=== PATIENT | female | born 1985 | race Hispanic/Latino ===

== ENCOUNTER 2017-04-04 17:26 | Emergency (ER) | payer OTHER ==
[2017-04-04 18:20] VITALS: BMI 30.1
[2017-04-04 19:04] LABS: BASO % 0.1 % (0.0-2.0); EOS # 0.1 K/uL (0.0-0.7); EOS % 0.9 % (0.0-4.0); HEMOGLOBIN 10.6 g/dL (12.0-16.0); LYMPH # 3.2 K/uL (1.0-4.3); LYMPH % 24.6 % (20.0-40.0); MEAN CELL VOLUME 89.8 fl (81.0-99.0); MEAN CORPUSCULAR HEMOGLOBIN 29.1 pg (27.0-31.0); MEAN CORPUSCULAR HGB CONC 32.5 g/dL (33.0-37.0); MEAN PLATELET VOLUME 9.2 fl (7.2-11.7); MONO # 1.3 K/uL (0.0-0.8); MONO % 10.1 % (0.0-10.0); NEUT # 8.4 K/uL (1.8-7.0); NEUT % 64.3 % (50.0-75.0); RBC 3.64 Mil/uL (3.80-5.20); RED CELL DISTRIBUTION WIDTH 14.7 % (11.5-14.5); WHITE BLOOD COUNT 13.2 K/uL (4.8-10.8)
[2017-04-04 19:19] LABS: ALB/GLOB RATIO 1.1 (1.0-2.1); ALBUMIN 3.5 g/dL (3.5-5.0); ALT/SGPT 39 U/L (9-52); AMYLASE 74 U/L (30-110); AST/SGOT 32 U/L (14-36); BILIRUBIN,DIRECT 0.2 mg/ml (0.0-0.4); BLOOD UREA NITROGEN 6 mg/dl (7-17); CALCIUM 9.7 mg/dL (8.4-10.2); GFR AFRICAN-AMERICAN > 60; GFR NON-AFRICAN AMERICAN > 60; LIPASE 194 U/L (23-300); URIC ACID 4.4 mg/Dl (2.2-7.5)
[2017-04-05 03:22] VITALS: BP 112/73; PULSE 93; O2SAT 100
--- NOTE | 2017-04-05 08:51 | OBHP ---
Datetime: 04/04/2017 19:52 IP Adm Impression: , intrauterine IP Admit Plan: Observation/Evaluation; Discharge home Admit Comment, IP Provider: 31 y/o female at 34 wks gestation presents to [facility] with complaints of RUQ pain yesterday lasting all day, denies any pain today. Also reports feeling short of breath, w hich she has been experiencing for the past few weeks. Pt admits that she has been under a lot of str ess. Denies any CTX, VB, LOF, cough, fever, dysuria, n/v. Reports movements. PNC: Unremarkable as per patient OBHx; 1 pior , no compliations PMHx: Denies SurgHx: Denies Meds: PNV Allergies: NKDA Social: Negative x 3 habits Vitals stable, O2 sat 100% on room air PE: General: NAD, comfortable, no signs of respiratory distress Cardiac: RRR, no murmurs Lungs: CTABL Abdomen: Gravid,Tenderness to palpation of RUQ, murphys negative, no gaurding, + BS FHR: 145, reactive, no decels [place]: no contractions Assessment: IUP at 34wks with RUQ pain and SOB Plan: Observation. Labs: CBC, CMP, LFT's, Amylase, Lipase, LDH, Uric Acid -ayonas Addendum: 20:45 Pts labs wnl, stable for discharge, follow up with provider. Seen/discussed w/ Dr. Vasques. -adriel Addendum: I saw and examined the patient at presentation. Patient observed at OB ED for multiple hours. Melanie l signs stable and all labs within normal limits. No evidence of labor at this time. Maternal well-being and well-being reassuring at this time. Patient discharged home with labor precautions. I discussed plan with patient and all patient questions answered. Caprice PARDO AdmitDate IP: 34.1 IP Chief Complaint: Maternal discomfort
== END 2017-04-04 20:35 | disposition home or self-care (01) ==
LOC: H.EROB2 17:26
DX: O26.893 Other specified pregnancy related conditions, third trimester (principal); Z3A.34 34 weeks gestation of pregnancy; R10.11 Right upper quadrant pain